=== PATIENT | female | born 1995 | race Two or more races ===

== ENCOUNTER → 2022-10-16 | Day surgery (SDC) | payer MEDICAID ==
[~2022-10-16] VITALS: Ht 157.5 cm; Wt 118.8 kg
[~2022-10-16] MED LIST: ALBUAER3 IN; ALPR0.25 PO; DexAMETHasone SOD PHOS 10MG/1ML VIAL INJ ONE; FLUMAZENIL 0.1 MG/ML INJ 10ML MDV IV PRN; FLUT1AER3 IN; GLYCOPYRROLATE 0.2 MG/ML 1ML VIAL ONE; HYDR1TAB97 PO; HYDROmorphone HCL 2 MG/ML VL/or syr ONE; IBUP-1456 PO; IOHEXOL 300 MG/ML 100ML BOTTLE IJ ONE; KETAMINE 50mg/ML 10ml Vial (500mg/10ml) IV ONE; KETOROLAC TROMETH 30 MG/ML 1ML VIAL ONE; LABETALOL HCL 5 MG/ML 4ML SYRINGE IV PRN; LIDOCAINE 2% (LOCAL ANESTH.) PF 5ml SDV ONE; NALOXONE HCL 0.4 MG/ML VIAL IV PRN; ONDANSETRON HCL 4 MG/2 ML VIAL IV PRN; ONDANSETRON HCL 4 MG/2 ML VIAL ONE; PROPOFOL 10 MG/ML 20 ML IV ONE; TAMS-35 PO; ceFAZolin 1GM/50ML 100 ML IV ONE; ePHEDrine SULFATE 50 MG/ML AMP IV PRN; fentaNYL CITRATE 100 MCG/2 ML VL IV PRN; hydrALAZINE HCL 20 MG/ML VL IV PRN
[2022-10-16 09:00] VITALS: TEMP 98.1
[2022-10-16 11:57] VITALS: O2SAT 100
[2022-10-16] MEDS: HYDROmorphone HCL 2 MG/ML VL/or syr IV PRN ×2 (12:11→12:28)
[2022-10-16 12:54] VITALS: BP 124/70; PULSE 74; RESP 13; O2SAT 97
== END | disposition home or self-care (01) ==
LOC: SUR 08:48
PROVIDERS: ATTEND Urology
DX: N20.1 Calculus of ureter (principal); I10 Essential (primary) hypertension; K21.9 Gastro-esophageal reflux disease without esophagitis; J45.909 Unspecified asthma, uncomplicated; F17.210 Nicotine dependence, cigarettes, uncomplicated; E66.9 Obesity, unspecified; Z68.42 Body mass index [BMI] 45.0-49.9, adult; Z79.51 Long term (current) use of inhaled steroids; Z79.1 Long term (current) use of non-steroidal anti-inflammatories (NSAID); Z79.891 Long term (current) use of opiate analgesic; Z79.899 Other long term (current) drug therapy
CPT/HCPCS: 50590; 81025; J0690; J1100; J1170; J1885; J2001; J2405; J2704; Q9967